=== PATIENT | female | born 1990 | race Caucasian/White ===

== ENCOUNTER 2017-11-17 08:03 | Emergency (ER) | payer BC, OTHER ==
[~2017-11-17 08:03] MED LIST: ALBU18HF IH; ALPR1TAB2 PO; NAPR500T8 PO
[2017-11-17] MEDS ORDERED: IPRATRPIUM/ALBUTEROL 0.5/2.5MG 3 ML NEBU. NEB ONE (08:15)
--- NOTE | 2017-11-17 08:26 | PHYS DOC ---
Past History Past Medical History: No Pertinent History Past Surgical History: , Tonsillectomy Smoking: Non-smoker Alcohol Use: None Drug Use: None Adult General Chief Complaint Chief Complaint: cough and wheeze [facility] HPI Patient is a pleasant otherwise healthy 27-year-old female with no major medical problems who has had a prior and tonsillectomy in the past presents with a three-day history of nonproductive cough, rhinorrhea and subjective fevers and chills. She is also stated I felt, "" somewhat short of breath with exertion. 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 Patient does states she has a slight sore throat with cough but denies any change in voice anterior neck swelling or stiffness. Patient actually is really concerned she has the flu. Differential diagnosis: Acute myocardial ischemia, heart failure, cardiac tamponade, bronchospasm, pulmonary embolism, pneumothorax, pulmonary infection i.e. bronchitis or pneumonia, upper airway obstruction, anaphylaxis, aspiration , psychogenic, pulmonary contusion, toxidrome, pneumomediastinum, noncardiogenic pulmonary edema or ARDS, COPD, tuberculosis, cystic fibrosis, asthma, high altitude pulmonary edema, valvular dysfunction, cardiac dysrhythmia , stroke, neuromuscular diseases like myasthenia gravis gravis, ALS, Guillain- Welch syndrome, metabolic acidosis to include diabetic ketoacidosis, sepsis, and obstructive disorders like massive obesity Review of Systems Review of Systems Constitutional: Positive for fevers and chills Eyes: Denies change in visual acuity, redness, or eye pain [] HENT: Positive for nasal congestion and sore throat Respiratory: Positive for cough and shortness of breath without wheeze Cardiovascular: No additional information not addressed in HPI [] GI: Denies abdominal pain, nausea, vomiting, bloody stools or diarrhea [] : Denies dysuria or hematuria [] Musculoskeletal: Denies back pain or joint pain [] Integument: Denies rash or skin lesions [] Neurologic: Denies headache, focal weakness or sensory changes [] All other systems were reviewed and found to be within normal limits, except as documented in this note. Current Medications Current Medications Current Medications Medications (Trade) Dose Ordered Sig/Abraham Start Time Stop Time Status Last Admin Dose Admin Albuterol/ Ipratropium (Duoneb) 3 ml 1X ONCE 11/17/17 08:15 11/17/17 08:16 UNV Prednisone (Prednisone) 60 mg 1X ONCE 11/17/17 08:15 11/17/17 08:16 UNV Allergies Allergies Allergies Coded Allergies Type Severity Reaction Last Updated Verified No Known Drug Allergies 05/28/15 No Physical Exam Physical Exam Constitutional: Well developed, well nourished, she is mildly obese not in acute distress HENT: Normocephalic, atraumatic, bilateral external ears normal, oropharynx moist, mild erythema no oral exudates no tonsillar hypertrophy, nose clear rhinorrhea with clear TMs. [] Eyes: PERRLA, EOMI, conjunctiva normal, no discharge. [] Neck: Normal range of motion, no tenderness, supple, no stridor. No anterior lymphadenopathy [] Cardiovascular:Heart rate regular rhythm, no murmur [] Lungs & Thorax: Patient has significant wheezing throughout all lung mcnamara with no retractions or crackles or Rales or rhonchi she has no sensory muscle use and no retractions she speaks in 12-15 word sentences without issue Skin: Warm, dry, no erythema, no rash. [Brisk at +2 capillary refill in the hands and extremities] Extremities: No tenderness, no cyanosis, no clubbing, ROM intact, no edema. [] Neurologic: Alert and oriented X 3, normal motor function, normal sensory function, no focal deficits noted. [] Psychologic: Affect normal, judgement normal, mood normal. [] EKG EKG EKG done at 8:58 AM read by me demonstrate a heart rate of 81 there is a P wave there were QRS this is normal sinus rhythm. Intervals 140/normal, QRS width is 86 which is normal, QTC is 442 which is normal, this is a normal EKG with no ST segment T-wave changes consistent with acute coronary ischemia.[] Radiology/Procedures Radiology/Procedures []2 view chest x-ray read by me. Lateral does not demonstrate any signs of pulmonary infiltrate, no pneumothorax, no subcutaneous air no subdiaphragmatic air this is a normal chest x-ray Course & Med Decision Making Course & Med Decision Making Pertinent Labs and Imaging studies reviewed. (See chart for details) []Patient is a nonsmoker who presents with a cough wheeze throughout her lung mcnamara and a subjective fevers and chills at home with runny nose. She has similar symptoms to those of her daughter and workers. She received a dose of steroids for her bronchospasm as well as DuoNeb a chest x-ray EKG and screening for influenza. Time is now 8:50 AM patient's PA and lateral chest x-ray demonstrated no acute infiltrate consistent with pneumonia, patient's wheezing is improved with albuterol nebs and oral prednisone. I believe patient is suffering from bronchospasm secondary to acute bronchitis which is likely viral nature she will not need antibiotics but given the wheezing she may benefit from steroids and albuterol inhaler and follow-up with her PCP. She influenza swab was also negative and I do not believe the patient is suffering from pertussis. Differential diagnosis for bronchitis includes but not limited to: Asthma, EASTON inhibitor use Heart failure Pulmonary embolism Bronchitis Lung cancer Pneumonia GERD Postnasal drip pertussis Atypical pneumonia Influenza A and B ParaInfluenza Coronavirus Rhinovirus Respiratory syncytial virus Lungs much better and on repeat exam wheezing is resolved. I will plan to discharge her with a albuterol inhaler and a short course of steroids without an antibiotic. discharge: I've spoken with the patient and/or caregivers. I've explained the patient's condition, diagnosis and treatment plan based on information available to me at this time. I've answered the patient's and/or caregivers questions and addressed any concerns. The patient and/or caregivers have a good understanding the patient's diagnosis, condition and treatment plan as can be expected at this point. Vital signs have been stabilized. The patient's condition is stable for discharge from the emergency department. The patient will pursue further outpatient evaluation with her primary care provider or other designated consulting physician as outlined in the discharge instructions. Patient and/or caregivers are agreeable to this plan of care and follow-up instructions have been explained in detail. The patient and/or caregivers have received these instructions in written format and expressed understanding of these discharge instructions. The patient and her caregivers are aware that if any significant change in condition or worsening of symptoms should prompt him to immediately return to this of the closest emergency department. If an emergent department is not readily available I would encourage him to call 911. Gm Disclaimer Dragon Disclaimer This electronic medical record was generated, in whole or in part, using a voice recognition dictation system. Departure Departure: Impression: Primary Impression: Bronchitis Disposition: 01 HOME, SELF-CARE Condition: STABLE Referrals: PCP,ARTEMIO (PCP) Patient Instructions: Acute Bronchitis Additional Instructions: discharge: I've spoken with the patient and/or caregivers. I've explained the patient's condition, diagnosis and treatment plan based on information available to me at this time. I've answered the patient's and/or caregivers questions and addressed any concerns. The patient and/or caregivers have a good understanding the patient's diagnosis, condition and treatment plan as can be expected at this point. Vital signs have been stabilized. The patient's condition is stable for discharge from the emergency department. The patient will pursue further outpatient evaluation with her primary care provider or other designated consulting physician as outlined in the discharge instructions. Patient and/or caregivers are agreeable to this plan of care and follow-up instructions have been explained in detail. The patient and/or caregivers have received these instructions in written format and expressed understanding of these discharge instructions. The patient and her caregivers are aware that if any significant change in condition or worsening of symptoms should prompt him to immediately return to this of the closest emergency department. If an emergent department is not readily available I would encourage him to call 911. Scripts Prednisone (PREDNISONE) 20 Mg Tablet 3 TAB PO DAILY for 5 Days, #15 TAB Prov: SHELLIE PEACE MD 11/17/17 Guaifenesin/Dextromethorphan (MUCINEX DM ER 1,200-60 MG TAB) 1 Each Tbmp.12hr 1 TAB PO BID, #20 TAB 1 Refill Prov: SHELLIE PEACE MD 11/17/17 Albuterol Sulfate (PROVENTIL HFA INHALER) 6.7 Gm Hfa.aer.ad 1-2 PUFF IH PRN Q4HRS Y for WHEEZING for 7 Days, INHALER 0 Refills Please dispense inhaler with a spacer Prov: SHELLIE PEACE MD 11/17/17 SHELLIE PEACE MD Nov 17, 2017 08:26
[2017-11-17 08:47] LABS: INFLUENZA A PATIENT NEGATIVE (NEGATIVE); INFLUENZA B PATIENT NEGATIVE (NEGATIVE)
[2017-11-17] MEDS ORDERED: predniSONE 20 MG TABLET PO ONE (08:50)
[2017-11-17] MEDS ORDERED: PRED20TA PO (09:02)
[2017-11-17] MEDS ORDERED: ALBU6.7H IH (09:02)
[2017-11-17] MEDS ORDERED: GUAI1TBM10 PO (09:02)
[2017-11-17 09:20] VITALS: BP 145/60
--- NOTE | 2017-11-17 09:31 | RAD ---
Exam: PA and lateral chest radiograph History: Cough and wheezing. Comparison: 05/28/2015. Findings: Cardiomediastinal silhouette is within normal limits for size. Bilateral lung mcnamara are free of focal infiltrate. No pleural effusion is seen. Impression: No acute cardiopulmonary process.
--- NOTE | 2017-11-17 12:10 | EKG ---
[address] [address] Test Date: 2017-11-17 Test Time: 08:58:34 Pat Name: TOMAS ARCE Department: Room: Gender: F Emr Implementation Specialist: ROCIO : [id number] Requested By: SHELLIE PEACE Order Number: [id number] Reading MD: Measurements Intervals [place] Rate: 81 P: 31 NV: 144 QRS: 45 QRSD: 86 T: 12 QT: 380 QTc: 442 Interpretive Statements SINUS RHYTHM NORMAL ECG RI6.01 No previous ECG available for comparison
== END 2017-11-17 09:30 | disposition home or self-care (01) ==
LOC: ER 08:03
DX: J40 Bronchitis, not specified as acute or chronic (principal)
CPT/HCPCS: 71046; 87804; 93005; 94640; 99285; J7512; J7620

== ENCOUNTER → 2019-10-30 | Outpatient (CLI) | payer OTHER ==
[~2019-10-30] MED LIST changes: -ALBU18HF IH; +ALBU2.5V8 IH; +GUAI1TBM10 PO; +PRED20TA PO
--- NOTE | 2019-10-30 18:00 | RAD ---
INDICATION: Cough with concern for pneumonia COMPARISON: None. FINDINGS: 2 view of chest obtained. No focal airspace consolidation or pulmonary edema. Cardiac silhouette is not enlarged. Degenerative changes the spine with osteophyte formation. IMPRESSION: * No focal airspace consolidation. Electronically signed by: Chi Georges MD (10/30/2019 5:57 PM) [facility] [place]
== END | disposition home or self-care (01) ==
LOC: PMG 17:11
PROVIDERS: ATTEND Registered Nurse
DX: R05 Cough (principal); M47.814 Spondylosis without myelopathy or radiculopathy, thoracic region
CPT/HCPCS: 71046

== ENCOUNTER → 2020-04-26 | Outpatient (CLI) | payer OTHER | END | disposition home or self-care (01) | LOC: LAB 14:58 | PROVIDERS: ATTEND Internal Medicine Cardiovascular Disease | DX: Z03.818 Encounter for observation for suspected exposure to other biological agents ruled out (principal) | CPT/HCPCS: 36415; U0003 ==

== ENCOUNTER → 2020-07-02 | Outpatient (CLI) | payer OTHER | END | disposition home or self-care (01) | LOC: LAB 13:37 | PROVIDERS: ATTEND Internal Medicine Cardiovascular Disease | DX: Z20.828 Contact with and (suspected) exposure to other viral communicable diseases (principal) | CPT/HCPCS: U0003-CS ==

== ENCOUNTER → 2020-08-30 | Outpatient (CLI) | payer OTHER | LOC: LAB 10:26 | PROVIDERS: ATTEND Internal Medicine Cardiovascular Disease | DX: Z20.828 Contact with and (suspected) exposure to other viral communicable diseases (principal) | CPT/HCPCS: U0003 ==

== ENCOUNTER → 2020-09-15 | Outpatient (CLI) | payer OTHER | LOC: LAB 17:23 | PROVIDERS: ATTEND Internal Medicine Cardiovascular Disease | DX: Z20.828 Contact with and (suspected) exposure to other viral communicable diseases (principal) | CPT/HCPCS: U0003 ==

== ENCOUNTER → 2020-09-22 | Outpatient (CLI) | payer OTHER | LOC: LAB 15:02 | PROVIDERS: ATTEND Internal Medicine Cardiovascular Disease | DX: Z20.828 Contact with and (suspected) exposure to other viral communicable diseases (principal) | CPT/HCPCS: U0003 ==

== ENCOUNTER → 2021-01-09 | Outpatient (CLI) | payer OTHER ==
--- NOTE | 2021-01-09 13:16 | RAD ---
CT cervical spine without contrast. 01/09/2021 10:03 AM Indication:Reason: NECK AND SHOULDER PAIN, RULE OUT RUPTURED DISC / Spl. Instructions: unable to wes ve earring / History: Comparison Study: None Technique: Multidetector CT imaging of the cervical spine was obtained without administration of cont rast. Findings: There is no evidence of acute fracture or alignment abnormality of the cervical spine. Vert ebral body heights and disc spaces are maintained. The atlantoaxial articulation is within normal li mits. There is no prevertebral soft tissue swelling. Soft tissues are otherwise unremarkable. No bony compromise of the spinal canal is seen. Impression: No evidence of acute osseous abnormality involving the cervical spine CT DOSING PQRS STATEMENT: One or more of the following individualized dose reduction techniques were utilized for this examinat ion: 1. Automated exposure control 2. Adjustment of the mA and/or kV according to patient size 3. Use of iterative reconstruction technique Electronically signed by: Alin Hooker MD (01/09/2021 1:14 PM) [id number]
--- NOTE | 2021-01-09 15:12 | RAD ---
PROCEDURE: XR CERVICAL SPINE 2-3V STUDY DATE: 01/09/2021 CLINICAL INDICATION / HISTORY: Reason: NECK AND SHOULDER PAIN, RULE OUT RUPTURED DISC / Spl. Instruct ions: unable to remove earring / History: . TECHNIQUE: 2 VIEWS: AP, lateral COMPARISON: None FINDINGS: Alignment is within normal limits. There is preservation of the normal cervical lordosis. V ertebral body heights and disc spaces are well maintained. The atlantoaxial joint is well maintained. No fracture or subluxation is identified. Prevertebral and paraspinous soft tissues are unremarkable . IMPRESSION: No evidence of fracture or subluxation in the cervical spine. Electronically signed by: Azeem Wallace MD (01/09/2021 3:09 PM) [id number]
== END ==
LOC: CT 09:48
PROVIDERS: ATTEND Family Medicine
DX: M54.2 Cervicalgia (principal); M25.519 Pain in unspecified shoulder
CPT/HCPCS: 72040; 72125

== ENCOUNTER 2021-12-20 05:13 | Emergency (ER) | payer SELFPAY ==
[~2021-12-20] VITALS: Ht 154.9 cm; Wt 81.8 kg
[2021-12-20 06:10] VITALS: BP 142/88
[2021-12-20] MEDS ORDERED: predniSONE 20 MG TABLET PO ONE (06:30)
[2021-12-20] MEDS ORDERED: HYDROcodone/APAP 5/325MG 1 TAB TABLET PO ONE (06:30)
[2021-12-20] MEDS ORDERED: PRED50TA PO (06:43)
--- NOTE | 2021-12-20 06:43 | PHYS DOC ---
Past History Past Medical History: Hypertension Past Surgical History: , Tonsillectomy Smoking: Non-smoker Alcohol Use: None Drug Use: None General Adult EDM: Chief Complaint: Neck Pain HPI: HPI: 31-year-old female presents with a left shoulder and neck pain. Patient has a known bulging disc that she has had difficulty with in the past. She presents today because she has limited rotation of her head due to pain. It feels like the pain is just under her left scapula. She has had some tingling in her fourth and fifth digit but at this time. She has had that sensation previously with less severe pain. When she woke up this morning, the patient was unable to get dressed without significant discomfort. She cannot move her head very far. She denies any falls, trauma, or recent overuse. She has no other complaints this time. Review of Systems: Review of Systems: Constitutional: Denies fever or chills Eyes: Denies change in visual acuity HENT: Denies nasal congestion or sore throat Respiratory: Denies cough or shortness of breath Cardiovascular: Denies chest pain or edema GI: Denies abdominal pain, nausea, vomiting, bloody stools or diarrhea : Denies dysuria Musculoskeletal: Neck and left shoulder pain Integument: Denies rash Neurologic: Denies headache, focal weakness or sensory changes Endocrine: Denies polyuria or polydipsia Lymphatic: Denies swollen glands Psychiatric: Denies depression or anxiety Current Medications: Current Meds: Current Medications Medications (Trade) Dose Ordered Sig/Abraham Start Time Stop Time Status Last Admin Dose Admin Acetaminophen/ Hydrocodone Bitart (Lortab 5/325) 1 tab 1X ONCE 12/20/21 06:30 12/20/21 06:32 DC 12/20/21 06:30 1 TAB Prednisone (Prednisone) 60 mg 1X ONCE 12/20/21 06:30 12/20/21 06:32 DC 12/20/21 06:30 60 MG Allergies: Allergies: Allergies Coded Allergies Type Severity Reaction Last Updated Verified No Known Drug Allergies 05/28/15 No Physical Exam: PE: Constitutional: Well developed, well nourished, no acute distress, non-toxic appearance. [] HENT: Normocephalic, atraumatic, bilateral external ears normal, oropharynx moist, no oral exudates, nose normal. [] Eyes: PERRLA, EOMI, conjunctiva normal, no discharge. [] Neck: Pain with rotation past 30 degrees bilaterally, pain with flexion and extension. No stiffness or rigidity. [] Cardiovascular: Heart rate regular rhythm, no murmur [] Lungs & Thorax: Bilateral breath sounds clear to auscultation [] Abdomen: Bowel sounds normal, soft, no tenderness, no masses, no pulsatile masses. [] Skin: Warm, dry, no erythema, no rash. [] Back: No tenderness, no CVA tenderness. [] Extremities: No tenderness, no cyanosis, no clubbing, ROM intact, no edema. [] Neurologic: Alert and oriented X 3, normal motor function, normal sensory function, no focal deficits noted. [] Psychologic: Affect normal, judgement normal, mood normal. [] Current Patient Data: Vital Signs: Vital Signs Date Time Temp Pulse Resp B/P (MAP) Pulse Ox O2 Delivery O2 Flow Rate FiO2 12/20/21 06:10 98.1 76 18 142/88 (106) 76 Room Air EKG: EKG: [] Radiology/Procedures: Radiology/Procedures: [] Heart Score: C/O Chest Pain: N/A Risk Factors: Risk Factors: DM, Current or recent (<one month) smoker, HTN, HLP, family history of CAD, obesity. Risk Scores: Score 0 - 3: 2.5% MACE over next 6 weeks - Discharge Home Score 4 - 6: 20.3% MACE over next 6 weeks - Admit for Clinical Observation Score 7 - 10: 72.7% MACE over next 6 weeks - Early Invasive Strategies Course & Med Decision Making: Course & Med Decision Making Pertinent Labs and Imaging studies reviewed. (See chart for details) The patient's symptoms are consistent with a bulging disc and acute exacerbation of that area. I will treat her with 5 days of prednisone and give the first dose in the emergency room. I will also give her 1 [place] 5/325 to take off the edge for now while the medications work. The patient would prefer not to be on narcotic pain medicine at home, so she does not want a prescription. She is not having significant muscle spasms muscle relaxer is of no benefit. Also advised that she ice the area and do her physical therapy exercises as she can. She states verbal understanding. She is stable for discharge at this time. [] Dragon Disclaimer: Gm Disclaimer: This electronic medical record was generated, in whole or in part, using a voice recognition dictation system. Departure Departure: Impression: Primary Impression: Bulging disc Additional Impression: Cervical radicular pain Disposition: HOME / SELF CARE / HOMELESS Condition: STABLE Referrals: VIRI WHEATLEY (PCP) Patient Instructions: Cervical Radiculopathy, [id number] Scripts Prednisone (PREDNISONE) 50 Mg Tablet 1 TAB PO DAILY for cervical pain for 4 Days, #4 TAB Prov: SARIKA GAMING DO 12/20/21 SARIKA GAMING DO Dec 20, 2021 06:43
== END 2021-12-20 06:46 | disposition home or self-care (01) ==
LOC: ER 05:13
DX: M54.12 Radiculopathy, cervical region (principal); I10 Essential (primary) hypertension
CPT/HCPCS: 99283; J7512